=== PATIENT | female | born 1970 | race Caucasian/White ===

== ENCOUNTER 2021-10-06 13:48 | Emergency (ER) | payer BC, SELFPAY ==
[2021-10-06 13:50] VITALS: BP 119/69; PULSE 105; RESP 19; TEMP 36.8; O2SAT 100
--- NOTE | 2021-10-06 14:03 | ED.URI ---
HPI - URI/Sore Throat General Chief Complaint: Headache Stated Complaint: simpson, congestion Time Seen by Provider: 10/06/21 13:57 Source: patient History of Present Illness HPI Narrative: Patient presents with congestion and sore throat. Patient reports she initially had a headache 7 to 10 days ago but is like her typical migraine symptoms were improving and then yesterday she noted a sore throat and nasal congestion associated with mild cough she is unsure if she has had fevers. She reports her throat is achy, no radiation, worse with attempting to swallow. She denies any shortness of breath, nausea, vomiting, chest pain, abdominal pain. Related Data Allergies Allergy/AdvReac Type Severity Reaction Status Date / Time No Known Allergies Allergy Unverified 02/02/20 10:56 Review of Systems Review of Systems: CONSTITUTIONAL: Denies fever, chills, or sweats. EYES: Denies visual changes, redness, or discharge. ENT: Reports sore throat and congestion CARDIOVASCULAR: Denies chest pain, palpitations, or edema. RESPIRATORY: Denies cough or dyspnea. GASTROINTESTINAL: Denies abdominal pain, nausea, vomiting, or diarrhea. GENITOURINARY: Denies dysuria or hematuria. SKIN: Denies rash or itching. MUSCULOSKELETAL: Denies back pain, joint pain, or myalgia. NEUROLOGIC: Denies headache, numbness, dizziness, or weakness. PSYCHIATRIC: Denies anxiety or depression. All systems reviewed & are unremarkable except as noted in HPI and below PMFSH Past Medical History Medical History (Updated 10/06/21 @ 14:57 by Juan José Mcgovern MD) Lung cancer Social History Social History (Updated 10/06/21 @ 14:04 by Juan José Mcgovern MD) Living arrangements: with family Exam Narrative: GENERAL: Well-appearing, well-nourished, and in no acute distress. HEAD: Normocephalic, atraumatic. EYES: PERRLA and EOMI. ENT: Nares clear, no rhinorrhea or epistaxis. Mucous membranes moist. There is diffuse erythema in the posterior oropharynx no uvula deviation no airway compromise NECK: Supple. No masses. Right cervical lymphadenopathy CHEST: Clear to auscultation. No respiratory distress. No wheezes rales or rhonchi HEART: Regular rate and rhythm. No murmur heard. Normal peripheral pulses. EXTREMITIES: Normal range of motion. No edema. SKIN: Warm, dry, no rash. NEURO: No focal deficits. Alert and oriented x3. PSYCH: Normal mood and affect. Course Reevaluation(s) Reevaluation #1: Patient resting comfortably results and plan reviewed with patient. Patient comfortable outpatient plan. Date: 10/06/21 Time: 14:55 Vital Signs Vital signs: Vital Signs Temperature 36.8 C 10/06/21 13:50 Pulse Rate 105 H 10/06/21 13:50 Respiratory Rate 19 10/06/21 13:50 Blood Pressure 119/69 10/06/21 13:50 Pulse Oximetry 100 10/06/21 13:50 Temperature 36.8 C 10/06/21 13:50 Pulse Rate 98 10/06/21 15:17 Respiratory Rate 18 10/06/21 15:17 Blood Pressure 112/68 10/06/21 15:17 Pulse Oximetry 97 10/06/21 15:17 MDM - URI/Sore Throat MDM Narrative Medical decision making narrative: H&P as above, vss, pt looks clinically well, exam diffuse erythema in the posterior pharynx concerning for strep pharyngitis patient also noted to have cervical lymphadenopathy, rapid strep was negative influenza swabs were negative throat culture is pending, additional labs/img considered, symptomatic relief available as needed, on reevaluation pt continues to looks clinically well. Clinically suspect strep pharyngitis will cover with antibiotics low concern for VARITYPIST, severe sepsis, airway compromise. plan to tx/monitor as op w/ pcm f/u findings/plan discussed with pt, pt agree/comfortable with plan, return precautions given Lab Data Labs: Lab Results 10/06/21 Range/Units 14:11 SARS-CoV-2 RNA (RT-PCR) Negative Influenza A Screen Negative Reference Range: Negative Influenza B Screen Ne
[2021-10-06] MEDS: KETOROLAC 30 MG/ML VIAL (*BKC) IV PUSH (14:12)
[2021-10-06 15:08] LABS: SARS-CoV-2 RNA PCR Negative
[2021-10-06 15:17] VITALS: BP 112/68; PULSE 98; RESP 18; O2SAT 97
== END 2021-10-06 15:17 | disposition home or self-care (01) ==
PROVIDERS: Emergency Provider Emergency Medicine; PCP Nurse Practitioner Family
DX: J02.0 Streptococcal pharyngitis (principal); Z20.822 Contact with and (suspected) exposure to COVID-19; Z85.118 Personal history of other malignant neoplasm of bronchus and lung
CPT/HCPCS: 87081; 87804; 87880; 96374; 99284; C9803; J1885; U0003; U0005

== ENCOUNTER 2022-05-20 12:31 | Emergency (ER) | payer BC, SELFPAY ==
[2022-05-20] VITALS (22 sets, daily range): BP systolic 90–117; BP diastolic 52–74; PULSE 91–113; RESP 18–19; TEMP 36.7; O2SAT 96–100
[2022-05-20 12:51] LABS: Basophils Absolute Auto 0.1 K/mm3 (0.0-0.1); Basophils Percent Auto 0.8 % (0.2-1.2); Eosinophils Absolute Auto 0.1 K/mm3 (0-0.3); Eosinophils Percent Auto 0.9 % (0-4.4); Hematocrit 36.9 % (37.0-47.0); Hemoglobin 11.5 g/dL (12.0-15.0); Immature Granulocyte Absolute 0.01 K/mm3 (0.00-0.031); Immature Granulocyte Percent A 0.2 % (0-0.5); Lymphocytes Absolute Auto 1.78 K/mm3 (0.9-3.2); Lymphocytes Percent Auto 27.5 % (18.3-44.2); Mean Corpuscular HGB Conc 31.2 g/dl (32-36); Mean Corpuscular Hemoglobin 29.3 pg (26-34); Mean Corpuscular Volume 93.9 fl (80-100); Mean Platelet Volume 9.9 fl (7.4-10.4); Monocytes Absolute Auto 0.8 K/mm3 (0.1-0.6); Monocytes Percent Auto 12.8 % (2.6-8.5); Neutrophils Absolute Auto 3.8 K/mm3 (1.3-6.7); Neutrophils Percent Auto 57.8 % (45.5-73.1); Platelet Count Result 400 k/mm3 (150-375); Red Blood Count 3.93 M/mm3 (4.2-5.4); Red Cell Distribution Width 12.6 % (11.5-14.5); White Blood Count 6.5 K/mm3 (4.5-10.0)
[2022-05-20 13:01] LABS: Alanine Aminotransferase 30 U/L (6-35); Albumin Level 4.3 g/dL (3.5-5.1); Alkaline Phosphatase 64 U/L (38-126); Anion Gap 20 mmol/L (8-16); Aspartate Amino Transferase 25 U/L (14-36); Bilirubin,Total 0.7 mg/dL (0.2-1.3); Blood Urea Nitrogen 16 mg/dL (7-17); Calcium 9.3 mg/dL (8.4-10.2); Carbon Dioxide 19 mmol/L (22-30); Chloride 100 mmol/L (98-107); Estimated CRCL calculation 50 ml/min; Estimated Glomerular Filt Rate > 60; Glucose 71 mg/dL (65-110); Lipase 69 U/L (23-300); Potassium 4.4 mmol/L (3.4-5.0); Sodium 139 mmol/L (137-145)
[2022-05-20 13:33] LABS: Add Urine Microscopic? YES; Appearance Urine Cloudy (Clear); Bilirubin Urine Negative (Negative); Blood Urine Negative (Negative); Color Urine Yellow (Yellow); Glucose Urine UA Negative (Negative); Ketones Urine 2+ mg/dL (Negative); Leukocyte Esterase Ur Negative LEU/UL (Negative); Mucus Urine Rare /lpf; Nitrate Urine Negative (Negative); Protein Urine Negative (Negative); RBC Urine 0-2 /hpf (0-2); Specific Grav Ur 1.023 (1.001-1.035); Squamous Epithelial Cell Urine Rare /hpf (Few); Urobilinogen Urine Negative mg/dL (<2.0); WBC Urine 0-3 /hpf
--- NOTE | 2022-05-20 14:56 | ED.NAVMDI ---
HPI - Nausea/Vomiting/Diarrhea General Chief complaint: Nausea/Vomiting/Diarrhea Stated complaint: N/V/D X3D Time Seen by Provider: 05/20/22 14:43 History of Present Illness HPI Narrative: Patient is a 52-year-old female with a history of hyperlipidemia, seizures on Keppra, hypothyroid presenting with nausea and vomiting. Patient states that 2 days ago she ate at [employer] and since that time she has had persistent vomiting and diarrhea. States that she initially had some pain in her upper abdomen but that has since resolved. States she has been unable to keep anything but small amounts of water down. States she also feels generally weak. She otherwise denies headache, chest pain, shortness of breath, cough, dysuria, flank pain, leg swelling. Related Data Allergies Allergy/AdvReac Type Severity Reaction Status Date / Time No Known Allergies Allergy Unverified 02/02/20 10:56 Review of Systems Review of Systems: All systems reviewed & are unremarkable except as noted in HPI and below PMFSH Past Medical History Medical History Lung cancer Exam Narrative: GENERAL: Well-appearing, well-nourished, and in no acute distress. HEAD: Normocephalic, atraumatic. EYES: PERRLA and EOMI. ENT: Nares clear, no rhinorrhea or epistaxis. Mucous membranes dry NECK: Supple. CHEST: Clear to auscultation. No respiratory distress. HEART: Regular rate and rhythm. No murmur heard. Normal peripheral pulses. ABDOMEN: Soft, nontender, nondistended, normal active bowel sounds. EXTREMITIES: Normal range of motion. No edema. SKIN: Warm, dry, no rash. NEURO: No focal deficits. Alert and oriented x3. PSYCH: Normal mood and affect. Course Course Emergency Course: Patient is a 52-year-old female with history as above presenting with 2 days of vomiting and diarrhea. Patient is tachycardic, otherwise vitals are within normal limits. Exam is remarkable for the above. Abdomen is nontender and benign. Blood work with CO2 19, anion gap of 20. Urine with 2+ ketones. Likely starvation ketosis given several days of symptoms and lack of p.o. intake. Patient received a liter of fluids and Zofran with significant improvement in her symptoms. Patient is tolerating p.o. intake. She feels comfortable going home. Recommended she follow-up with her PCP. Strict return precautions were given. Patient voiced understanding and is agreeable with plan. Discharged in stable condition. Vital Signs Vital signs: Vital Signs Temperature 98.1 F 05/20/22 12:37 Pulse Rate 113 H 05/20/22 12:37 Respiratory Rate 18 05/20/22 12:37 Blood Pressure 90/60 L 05/20/22 12:37 Pulse Oximetry 98 05/20/22 12:37 Oxygen Delivery Room Air 05/20/22 12:37 Temperature 98.1 F 05/20/22 12:37 Pulse Rate 99 05/20/22 17:31 Respiratory Rate 18 05/20/22 17:31 Blood Pressure 112/56 L 05/20/22 17:31 Pulse Oximetry 99 05/20/22 17:31 Oxygen Delivery Room Air 05/20/22 12:37 MDM - Nausea/Vomiting/Diarrhea Lab Data Result diagrams: 05/20/22 12:45 05/20/22 12:45 Labs: Lab Results 05/20/22 05/20/22 05/20/22 Range/Units 12:45 12:45 12:59 WBC 6.5 (4.5-10.0) K/mm3 RBC 3.93 L (4.2-5.4) M/mm3 Hgb 11.5 L (12.0-15.0) g/dL Hct 36.9 L (37.0-47.0) % MCV 93.9 (80-100) fl MCH 29.3 (26-34) pg MCHC 31.2 L (32-36) g/dl RDW 12.6 (11.5-14.5) % Plt Count 400 H (150-375) k/mm3 MPV 9.9 (7.4-10.4) fl Immature Gran % (Auto) 0.2 (0-0.5) % Neut % (Auto) 57.8 (45.5-73.1) % Lymph % (Auto) 27.5 (18.3-44.2) % Knott % (Auto) 12.8 H (2.6-8.5) % Eos % (Auto) 0.9 (0-4.4) % Baso % (Auto) 0.8 (0.2-1.2) % Lymph # (Auto) 1.78 (0.9-3.2) K/mm3 Knott # (Auto) 0.8 H (0.1-0.6) K/mm3 Eos # (Auto) 0.1 (0-0.3) K/mm3 Baso # (Auto) 0.1 (0.0-0.1) K/mm3 Abs Immat Gran (auto) 0.01 (0.00-0.031) K/mm3 A
[2022-05-20] MEDS: SODIUM CHLORIDE 0.9% IV 1,000 ML 999 ML IV CONT (15:19)
[2022-05-20] MEDS: ONDANSETRON INJ 4 MG/2 ML VIAL IV PUSH (15:20)
[2022-05-20] MEDS: FAMOTIDINE 20 MG/2 ML VIAL IV PUSH (15:20)
== END 2022-05-20 17:46 | disposition home or self-care (01) ==
PROVIDERS: Emergency Medicine; Emergency Provider Emergency Medicine; PCP Nurse Practitioner Family
DX: K52.9 Noninfective gastroenteritis and colitis, unspecified (principal); E78.5 Hyperlipidemia, unspecified; G40.909 Epilepsy, unspecified, not intractable, without status epilepticus
CPT/HCPCS: 36415; 80053; 81001; 83690; 85025; 96361; 96374; 96375; 99284; J2405; J7030

== ENCOUNTER 2023-06-03 08:46 | Emergency (ER) | payer BC, SELFPAY ==
[2023-06-03 09:17] VITALS: BP 126/83; PULSE 86; RESP 18; TEMP 36.6; O2SAT 99
--- NOTE | 2023-06-03 09:50 | ED.URI ---
HPI - URI/Sore Throat General Chief Complaint: Upper Respiratory Infection Stated Complaint: cough,sorethroat Time Seen by Provider: 06/03/23 09:20 Source: patient Mode of arrival: ambulatory Limitations: no limitations History of Present Illness HPI Narrative: Agustin is a 53-year-old female patient presenting to the clinic today with complaints of cough, sore throat, nasal congestion, and left ear pain. She reports symptoms started on late Friday early Friday. Has vomited 1 time this morning due to nasal drainage. She was sent home from work today. She denies any fever or chills. No known exposure to strep, COVID, or influenza MD elicited complaint: cough, sore throat, nasal congestion and other (Left ear pain) Related Data Home Medications Medication Instructions Recorded Confirmed levetiracetam 500 mg tablet 500 mg PO BID 06/03/23 06/03/23 levothyroxine 125 mcg tablet 125 mcg PO DAILY 06/03/23 06/03/23 paroxetine HCl 40 mg tablet 40 mg PO DAILY 06/03/23 06/03/23 Allergies Allergy/AdvReac Type Severity Reaction Status Date / Time No Known Allergies Allergy Verified 06/03/23 09:29 Review of Systems Review of Systems: Pertinent positives per HPI. Patient denies any fever, chills, rash, headache, visual changes, dizziness, shortness of breath, chest pain, palpitations, nausea, vomiting, diarrhea, constipation, abdominal pain, or any urinary issues. PMFSH Past Medical History Medical History Lung cancer Social History Social History Living arrangements: with family Comments At the time of my signature, I reviewed and agree with the nursing past medical, surgical, social, and family history. There is no relevant family history pertinent to the patient complaint. Exam Narrative: General: Well-developed, well nourished, in no apparent distress Head: Normocephalic, atraumatic Eyes: Pupils equally round and reactive to light bilaterally, EOM intact, sclera and conjunctive clear, no discharge, lids normal Ears: TMs intact and congested, ear canals clear, no drainage, grossly hearing normal. Nose: Nares patent, clear nasal discharge, no inflammation, no sinus tenderness. Mouth: Oral pharynx red without lesions or masses, good dentition, MMM. Neck: Supple, trachea midline, no enlargement of anterior or posterior cervical nodes, no thyroid masses or goiter palpable. Cardio: Regular rate and rhythm, s1 and s2 normal, no murmur appreciated. Resp: Clear to auscultation bilaterally, no rhonchi, rales, wheezing or rubs Course Course Emergency Course: Portions of this record may have been created with voice recognition software. Level of Care: Express Care Visit Vital Signs Vital signs: Vital Signs Temperature 36.6 C 06/03/23 09:17 Pulse Rate 86 06/03/23 09:17 Respiratory Rate 18 06/03/23 09:17 Blood Pressure 126/83 06/03/23 09:17 Pulse Oximetry 99 06/03/23 09:17 Oxygen Delivery Room Air 06/03/23 09:17 Temperature 36.6 C 06/03/23 09:17 Pulse Rate 86 06/03/23 09:17 Respiratory Rate 18 06/03/23 09:17 Blood Pressure 126/83 06/03/23 09:17 Pulse Oximetry 99 06/03/23 09:17 Oxygen Delivery Room Air 06/03/23 09:17 Vital signs reviewed MDM - URI/Sore Throat MDM Narrative Medical decision making narrative: At the time of the patient is resting comfortably on exam table. COVID and strep test was negative in the clinic today. I suspect patient has URI/pharyngitis/viral syndrome. Supportive measures were discussed with the patient she voiced understanding discharge instructions and agrees to treatment plan. Differential Diagnosis Differential diagnosis: Likely upper respiratory infection, otitis media, sinusitis, viral infection, bronchitis, influenza, pharyngitis and other (COVID) Discharge Plan Discharge Clinical Impression: Upper resp
== END 2023-06-03 10:07 | disposition home or self-care (01) ==
PROVIDERS: Emergency Provider Nurse Practitioner Family; PCP Nurse Practitioner Family
DX: J06.9 Acute upper respiratory infection, unspecified (principal); J02.9 Acute pharyngitis, unspecified; B34.9 Viral infection, unspecified; Z20.822 Contact with and (suspected) exposure to COVID-19; Z85.118 Personal history of other malignant neoplasm of bronchus and lung
CPT/HCPCS: 87081; 87426; 87880; 99213; C9803; G0463